=== PATIENT | male | born 1990 | race Caucasian/White ===

== ENCOUNTER 2023-04-12 14:48 | Outpatient (REF) | payer OTHER, SELFPAY ==
--- NOTE | 2023-04-12 14:30 | SKI_PTH ---
PATIENT: ALISA MCBRIDE LOC: [facility] U#:[id number] AGE/SX: 32/M ROOM: RE04/12/[address]: Concepcion Blackburn MD : 1990 BED: DIS: 04/12/2023 SPEC #: [id number] RECD: 04/12/23 17:23 STATUS: VENUS REKyree #: [id number] JATINDER: 04/12/23 14:[address]: Concepcion Blackburn DEPT: Surgical Specimen RECD BY: Emerita Sol ENTERED: 04/12/23 17:23 SP TYPE: SKI RAVIN DR: Juliano Perales Tissues: 1 - SKIN BIOPSY(SHAVE/PUNCH) Procedures: SKIN LEVEL 4 Comments: [id number]
== END 2023-04-12 14:49 | disposition home or self-care (01) ==
LOC: LBN 14:48
PROVIDERS: PCP Family Medicine Adult Medicine; Visit Provider Surgery
DX: M79.89 Other specified soft tissue disorders (principal)
CPT/HCPCS: 88305